=== PATIENT | female | born 1985 | race Two or more races ===

== ENCOUNTER 2020-08-22 19:38 | Emergency (ER) | payer MEDICAID ==
[~2020-08-22] VITALS: Ht 152.4 cm; Wt 78.0 kg
[2020-08-22] MEDS ORDERED: HYDROCODONE/ACETAMINOPHEN 5/325MG TABLET PO ONE (20:15)
[2020-08-22 21:30] VITALS: BP 108/69
== END 2020-08-22 21:30 | disposition home or self-care (01) ==
LOC: ER 19:38
DX: S90.31XA Contusion of right foot, initial encounter (principal); W01.0XXA Fall on same level from slipping, tripping and stumbling without subsequent striking against object, initial encounter; Y93.89 Activity, other specified; Y92.89 Other specified places as the place of occurrence of the external cause; Y99.8 Other external cause status
CPT/HCPCS: 73610; 73630; 99284